=== PATIENT | female | born 1960 | race Two or more races ===

== ENCOUNTER 2022-09-04 21:47 | Emergency (ER) | payer OTHER ==
[~2022-09-04] VITALS: Ht 152.4 cm; Wt 56.2 kg
[2022-09-04 22:29] VITALS: BP 110/55
[2022-09-04] MEDS ORDERED: KETOROLAC TROMETH 60MG/2ML VIAL IM ONE (22:45)
[2022-09-04] MEDS ORDERED: HYDROcodone-ACET 5/325MG TAB PO ONE (22:45)
[2022-09-04] MEDS ORDERED: DexAMETHasone SOD PHOS 10MG/1ML VIAL INJ IM ONE (22:45)
== END 2022-09-05 02:26 | disposition home or self-care (01) ==
LOC: ER 21:47
DX: M06.842 Other specified rheumatoid arthritis, left hand (principal)
CPT/HCPCS: 96372; 99284; J1100; J1885